=== PATIENT | male | born 1960 | race Caucasian/White ===

== ENCOUNTER 2020-04-16 11:59 | Emergency (ER) | payer OTHER ==
[~2020-04-16] VITALS: Ht 193 cm; Wt 101.0 kg
--- NOTE | 2020-04-16 12:15 | NUR ---
MD Richter made aware of pt while in triage. Pt ambulatory to room with steady gait.
--- NOTE | 2020-04-16 12:24 | NUR ---
Personality changes and slow speech started 30 minutes ago. Pt denies complaints. No facial droop, UE/LE sensation and strength in tact. Pt a&ox3, did not know where he was. Pt crying in triage. Hx of DM, FSBG 88. ON INSULIN PUMP. PUMP TURNED OFF
--- NOTE | 2020-04-16 12:34 | NUR ---
ERP TO BEDSIDE FOR REPEAT NEUROLOGIC EXAM-REMAIN WITH SLOWED/SLURRED SPEECH. CRYING/SCARED. TO CT IMMEDIATELY AT 12:22P
--- NOTE | 2020-04-16 12:42 | NUR ---
WITH REASSESSMENT-PATIENT ADMITS TO DRINKING WINE THIS AM
[2020-04-16 12:48] LABS: BASOPHILS % (AUTO) 1 % (0-1); EOSINOPHILS % (AUTO) 1 % (1-7); LYMPHOCYTES % (AUTO) 37 % (22-44); MEAN CORPUSCULAR HEMOGLOBIN 31.5 pg (27.5-34.5); MEAN CORPUSCULAR HGB CONC 34.6 g/dL (33.2-36.2); MONOCYTES % (AUTO) 7 % (2-9); NEUTROPHILS % (AUTO) 54 % (42-75); PLATELET COUNT 277 x10^3/uL (130-400); RED BLOOD COUNT 4.74 x10^6/uL (4.38-5.82)
[2020-04-16 12:53] LABS: MD NO
--- NOTE | 2020-04-16 12:55 | NUR ---
cxr at bedside
--- NOTE | 2020-04-16 12:57 | NUR ---
lab asked to expedite etoh serum sample from blood already in lab
[2020-04-16 12:58] LABS: ANION GAP 7 mmol/L (5-15); CHLORIDE 108 mmol/L (98-107); CREATININE 0.96 mg/dL (0.7-1.3)
[2020-04-16 13:03] LABS: TROPONIN I < 0.015 ng/mL (0.000-0.045)
[2020-04-16 13:07] LABS: INTERNATIONAL NORMALIZED RATIO 1.02 (0.93-1.1); PROTHROMBIN TIME 10.9 Seconds (9.6-11.5)
--- NOTE | 2020-04-16 13:26 | NUR ---
No change in neuro exam. remains with slurred speech/tearful reviewed testing results with erp- to obtain MRI and plan to admit
--- NOTE | 2020-04-16 14:57 | NUR ---
no change in exam. However patient quite tearful/sad. When provided with food- " it doesn't matter either way." To have SW eval report to tina osorio
--- NOTE | 2020-04-16 15:00 | NUR ---
ASSUMED CARE FROM LEANDRO HUDSON.
--- NOTE | 2020-04-16 15:01 | NUR ---
placed order for sw as patient depressed/drunk. Also left voicemail. Silvia osorio aware
--- NOTE | 2020-04-16 16:40 | NUR ---
PT'S CALLED STATING "JUSTIN HAS CALLED US TELLING US GOODBYE, WE ARE WORRIED HE WILL DO SOMETHING TO HURT HIMSELF." DR. KRAMER AWARE, MILI MILES CALLED TO SPEAK TO PT.
--- NOTE | 2020-04-16 16:45 | NUR ---
JD GARCES IN ROOM TO SPEAK WITH PATIENT ABOUT SAFE DISCHARGE PLAN.
--- NOTE | 2020-04-16 17:14 | NUR ---
PER DR. KRAMER AND JD GARCES, PT TO BE DISCHARGED, WILL PICK HIM UP. PER THEY WILL BE CHECKING PT INTO ALCOHOL REHAB.
[2020-04-16 17:32] VITALS: BP 137/68
== END 2020-04-16 17:33 | disposition home or self-care (01) ==
LOC: ED 12:54
DX: F10.220 Alcohol dependence with intoxication, uncomplicated (principal); R51.9 Headache, unspecified; R00.9 Unspecified abnormalities of heart beat; R26.2 Difficulty in walking, not elsewhere classified; I10 Essential (primary) hypertension; E11.9 Type 2 diabetes mellitus without complications; Y90.0 Blood alcohol level of less than 20 mg/100 ml
CPT/HCPCS: 36415; 70450; 71045; 80048; 80320; 82040; 82962; 84484; 85025; 85610; 85730; 99285; G0480